=== PATIENT | male | born 1990 | race Asian ===

== ENCOUNTER 2017-02-14 20:10 | Day surgery (SDC) | payer SELFPAY ==
[~2017-02-14] VITALS: Ht 172.7 cm; Wt 89.8 kg
[2017-02-14 23:07] LABS: BASOPHIL (%) 0.1 % (0-1); EOSINOPHIL (%) 0.9 % (0-5); EOSINOPHIL COUNT 0.2 K/uL (0-0.3); HEMATOCRIT 48.6 % (38.0-50.0); IMMATURE GRANULOCYTE (%) 0.3 % (0.0-0.7); LYMPHOCYTE COUNT 1.4 K/uL (1.0-2.8); MCH 29.6 PG (29.0-34.0); MCV 84.7 FL (86-99); MONOCYTE (%) 5.6 % (3-12); NEUTROPHIL (%) 85.1 % (45-76); NEUTROPHIL COUNT 14.7 K/uL (1.8-6.4); PLATELET COUNT 237 K/uL (156-360); RBC DIS.WIDTH-CV 11.9 % (11.8-14.6); RBC DIS.WIDTH-SD 36.6 % (39-53); RED BLOOD COUNT 5.74 M/uL (4.00-5.50); WHITE BLOOD COUNT 17.3 K/uL (4.1-10.2)
[2017-02-14 23:18] LABS: ALBUMIN 4.3 g/dL (3.2-4.8); CHLORIDE 101 mEq/L (99-109); POTASSIUM 3.6 mEq/L (3.7-5.4); SODIUM 136 mEq/L (136-147)
[2017-02-14 23:20] LABS: GLUCOSE 287 mg/dL (70-99); TOTAL PROTEIN 7.8 g/dL (6.4-8.3)
[2017-02-14 23:22] LABS: TOTAL BILIRUBIN 0.7 mg/dL (0.0-1.0)
[2017-02-14 23:24] LABS: ALKALINE PHOSPHATASE 60 IU/L (3-129); CREATININE 0.8 mg/dL (0.6-1.3)
[2017-02-14 23:25] LABS: AST (GOT) 11 IU/L (2-34); UREA NITROGEN (BUN) 18 mg/dL (9-23)
[2017-02-14 23:27] LABS: ALT (GPT) 29 IU/L (3-49); LIPASE 11 U/L (1.0-51.0)
[2017-02-14 23:31] LABS: GFR ESTIMATE (CALCULATED) > 59 mL/min/ (58.99-99999)
[2017-02-14 23:49] LABS: APPEARANCE CLEAR ((CLEAR)); BILIRUBIN NEGATIVE; BLOOD NEGATIVE; COLOR YELLOW ((YELLOW)); GLUCOSE (STRIP) >=500; KETONES 80; LEUKOCYTES NEGATIVE; NITRITE NEGATIVE; PROTEIN (STRIP) NEGATIVE; UROBILINOGEN 0.2 MG/DL (0.2-1.0)
[2017-02-14 23:57] LABS: SPECIFIC GRAVITY 1.056 (1.000-1.030)
[2017-02-15] MEDS ORDERED: TYLENOL EXTRA500 MG PO (01:38)
[2017-02-15 08:08] VITALS: BP 118/72
[2017-02-15 09:48] VITALS: BP 112/59
[2017-02-15] MEDS ORDERED: ENDOCET 5-3251 EACH PO (11:50)
[2017-02-15 14:15] VITALS: BP 109/61
== END 2017-02-15 11:48 | disposition home or self-care (01) ==
LOC: EME 20:10 → SDC 02-15 02:10 → EME 02-15 02:10 → 2SOUTH 02-15 02:51 → CANRESERV 02-15 03:15 → ENRESERV 02-15 03:15 → 2SOUTH 02-15 11:48
PROVIDERS: Physician Assistant
PROC: 0DTJ4ZZ Resection of Appendix, Percutaneous Endoscopic Approach (ICD-10-PCS; principal; 2017-02-15)
DX: K35.80 Unspecified acute appendicitis (principal); E11.9 Type 2 diabetes mellitus without complications; F17.210 Nicotine dependence, cigarettes, uncomplicated
CPT/HCPCS: 74177; 80053; 81003; 83690; 85025; 88304; 93005; 99281; 99285; G0378; J1170; J1885; J2250; J2405; J3010; J7030; J7120; S0074